=== PATIENT | male | born 1955 | race Caucasian/White ===

== ENCOUNTER 2016-08-08 23:49 | Emergency (ER) | payer BC ==
[2016-08-09 00:39] LABS: Hematocrit 39.1 % (42.0-52.0); Hemoglobin 12.4 gm/dL (13.5-18.0); Mean Cell Volume 82.3 fl (78-100); Mean Corpuscular Hemoglobin 26.1 pg (27-31); Mean Corpuscular Hgb Conc 31.7 g/dl (32-36); Mean Platelet Volume 8.4 fl (6.0-9.5); Neutrophil % 73.8 % (42-75.0); Platelet Count 419 K/mm3 (150-450); Red Blood Count 4.75 M/mm3 (4.7-6.0); Red Cell Distribution Width 15.4 % (11.5-14.0); White Blood Count 12.1 K/mm3 (4.0-10.5)
[2016-08-09 01:00] LABS: ALT 22 U/L (19-67); AST 16 U/L (0-48); Alkaline Phosphatase * 93 U/L (50-170); Anion Gap 11.6 mmol/L (6.8-13.8); BUN/Creatinine Ratio 14.2 (9.0-21.6); Bilirubin, Total 0.2 mg/dL (0.0-1.1); Blood Urea Nitrogen 19 mg/dL (6-23); Ca. Corrected For Albumin 9.2 mg/dL (8.4-10.2); Calcium * 8.7 mg/dL (7.9-10.9); Carbon Dioxide 27.2 mmol/L (24-32.6); Chloride 103 mmol/L (97-106); Glucose * 103 mg/dL (70-110); Potassium 3.8 mmol/L (3.4-4.6); Salicylate Less than 2.8 mg/dL (2.8-20.0); Sodium 138 mmol/L (132-142); TSH * 0.481 uIU/mL (0.358-3.74); Total Protein 7.3 gm/dL (6.2-8.2)
[2016-08-09 01:12] LABS: Urine Bilirubin Negative (NEGATIVE); Urine Blood 25 /ul (NEGATIVE); Urine Ketone 15 mg/dL (NEGATIVE); Urine Nitrite Negative (NEGATIVE); Urine Protein 15 mg/dL (NEGATIVE); Urine Specific Gravity 1.015 SP.GR. (1.005-1.030); Urine Urobilinogen Normal (NORMAL); Urine pH 7.5 pH (5.0-7.0)
--- NOTE | 2016-08-09 01:16 | ERNOTE ---
<Ngozi Ceja - Last Filed: 08/09/16 08:47> Psychological HPI - Date Date of Service: 08/09/16 - - General Chief Complaint: Psychiatric Problem Source: patient, family Exam Limitations: no limitations - Immun/Allergies/Home Medications Allergies/Adverse Reactions: Allergies No Known Allergies Allergy (Unverified 08/08/16 23:56) Home Medications: HOME MEDICATIONS Cyclobenzaprine HCl [Flexeril] 10 mg PO TID PRN 08/09/16 [Last Taken Unknown] Hydrocodone/Acetaminophen [Lortab 5-325 mg Tablet] 1 tab PO Q4H PRN 08/09/16 [ Last Taken Unknown] Lisinopril [Zestril] 10 mg PO DAILY 08/09/16 [Last Taken Unknown] Magnesium Oxide [Magnesium] 400 mg PO DAILY 08/09/16 [Last Taken Unknown] Meloxicam [Mobic] 15 mg PO DAILY 08/09/16 [Last Taken Unknown] - Pain Score Pain Score #1 Pain Score: 2 - patient has chronic low back pain, heel pain due to ulceration - History of Present Illness Narrative: Patient brought by brother for evaluation of suicidal ideation and attempt on Thursday he took a weeks worth of his medications because he wants to go be with his recently girlfriend of greater than 14 years. Patient states he doesn't want to live anymore, he is having very difficult time in coping with this loss. Patient has no prior psychiatric history but in his early 20's did attempt suicide due to severe depression. Patient dines drugs, tob or alcohol use. Time Seen by Provider: 08/09/16 01:15 - Patient's Past Medical History Patient History - Medical: Anxiety, Depression Patient History - Cancer: No Hx of Cancer Patient History - Surgical Procedures: Appendectomy - Social History Living Situations: home Smoking Status: Never smoker Have you smoked in the past 12 months: No Do you dip or chew tobacco: No Patient requests Smoking Cessation Consult: No Initiate information on Smoking Cessation: No Alcohol Use: none Drug Use: none Physical Exam - Physical Exam General Appearance: Present: wd/wn, alert, mild distress, moderate distress Eye Exam: Normal inspection: bilateral, PERRL: bilateral, EOMI: bilateral Ears, Nose, Throat: Present: normal ENT inspection, hearing grossly normal, pharyngeal erythema, tonsillar exudate, other - upper and lower dentures Neck: Present: normal inspection, nontender Respiratory: Present: decreased breath sounds, wheezing, other - left basilar crackles . Absent: no respiratory distress Peripheral Pulses: N=norm/S=strong/W=weak/B=bound/A=absent: Carotid (R): Normal , Carotid (L): Normal, Radial (R): Normal, Radial (L): Normal, Dorsalis-pedis (R ): Normal, Dorsalis-pedis (L): Normal Gastrointestinal/Abdominal: Present: normal bowel sounds, other - obese but non tender, Male Genitals Exam: Present: deferred Back Exam: Present: decreased range of motion, muscle spasm, other - loss of lumbar lordosis and rom . Absent: normal range of motion, no CVA tenderness Extremity Exam: Present: pedal edema, other - right heel with 4 x 3 cm grade IV ulceration, DTR: N=norm/NB=norm/brisk/A=abs/DD=dull/dimin/HC=hyperactive: Bicep (R): Normal , Bicep (L): Normal, Tricep (R): Normal, Tricep (L): Normal Skin Exam: Present: warm/dry, other - foot ulcer grade IV ED Progress - Date and Time Seen: Date and Time: 08/09/16 07:00 patient require redirection hourly due to wanting to go home, patient is willing to sign in voluntarily but if he wants to leave we will pursue court committal as necessary, so far family support has kept him here. 08/09/16 07:41 Re-evaluation: Patient very irritated and not wanting to stay, he is upset at having to wait. Patient counselled on patience and food and pain meds offered. Patient return to his room as requested. - Results and Orders Patient's Lab Results:: I have reviewed the patient's lab results. Results and Orders: wbc : elevated due to recent diagnosis of pneumonia at [facility]. - Vital Signs Patient's Vital Signs:: I have reviewed the patient's vital signs. Vital Signs: Vital Signs 08/08/16 23:56 Temperature 37 C Pulse Rate 87 Respiratory 20 Rate Blood Pressure 157/82 O2 Sat by Pulse 93 Oximetry - EKG EKG: NSR, other - incomplete RBBB, QTC 378 calculated QTC 428 EKG read: Interp. by me - Progress/Reassessment Chief Complaint: Psychiatric Problem Progress:: Re-examined - patient is still at risk of attempting suicide via overdose, he has means and will at this time. - Transfer of Care Expected Disposition: Transfer - awaiting psychiatric bed acceptance Plan - Plan Plan: patient is stable for transfer, psychiatry will be here to see him. transfer care to Dr. Bourgeois Departure Clinical Impression: Suicidal ideation Depression Qualifiers: Depression Type: major depressive disorder Major depression recurrence: single episode Active/Remission status: currently active Major depression episode severity: severe Psychotic features: without psychotic features Qualified Code(s ): F32.2 - Major depressive disorder, single episode, severe without psychotic features Pneumonia Qualifiers: Pneumonia type: due to unspecified organism Laterality: bilateral Lung location : lower lobe of lung Qualified Code(s): J18.9 - Pneumonia, unspecified organism Chronic heel ulcer Qualifiers: Laterality: right Non-pressure ulcer stage: unspecified non-pressure ulcer stage Qualified Code(s): L97.419 - Non-pressure chronic ulcer of right heel and midfoot with unspecified severity - Departure Disposition: Other health care facility Condition: Fair Additional Instructions: I spoke with her psychiatrist just now, Dr. MAHMOOD, who examined the patient. He said that the patient definitely needs to be admitted for psychiatric help into a psychiatric hospital, following his evaluation here in the emergency room today. We will proceed with trying to find a suitable hospital bed. <Jf Escobar - Last Filed: 08/09/16 11:01> ED Progress - Vital Signs Vital Signs: Vital Signs 08/09/16 08:08 Pulse Rate 67 Respiratory 12 Rate Blood Pressure 134/82 O2 Sat by Pulse 98 Oximetry
[2016-08-09 01:17] LABS: Urine Appearance Cloudy; Urine Color Yellow
[2016-08-09 01:18] LABS: Urine Amorphous Sediment Many - 3+ (NONE-FEW); Urine Bacteria None Seen; Urine Mucus Moderate - 2+; Urine RBC 0-5 /hpf (0-5); Urine WBC 0-5 /hpf (0-5)
[2016-08-09 01:30] LABS: Cocaine Ur Negative (NEGATIVE); Urine Barbiturate Negative (NEGATIVE); Urine Benzodiazepines Negative (NEGATIVE); Urine PCP Negative (NEGATIVE); Urine THC Negative (NEGATIVE)
[2016-08-09 01:31] LABS: Urine Opiates Positive (NEGATIVE)
[2016-08-09] MEDS ORDERED: AZITHROMYCIN 250 MG TABLET PO ONE (01:34)
[2016-08-09] MEDS ORDERED: ALBUTEROL SULFATE 2.5 MG/0.5 ML VIAL.NEB IH ONE ×2 (01:37→01:41)
[2016-08-09] MEDS ORDERED: AZITHROMYCIN 250 MG TABLET ONE (01:40)
[2016-08-09] MEDS ORDERED: LORazepam 1 MG TABLET ONE ×2 (03:06→07:55)
[2016-08-09] MEDS ORDERED: LORazepam 1 MG TABLET PO ONE ×3 (03:07→17:42)
[2016-08-09] MEDS ORDERED: HYDROcodone/ACETAMINOPHEN 1 EACH TABLET PO ONE (07:38)
[2016-08-09] MEDS ORDERED: HYDROcodone/ACETAMINOPHEN 1 EACH TABLET ONE (07:55)
[2016-08-09] MEDS ORDERED: ZIPRASIDONE MESYLATE 20 MG VIAL IM ONE ×2 (11:32→12:00)
[2016-08-09] MEDS ORDERED: LORazepam 2 MG/ML DISP.SYRIN ONE (11:42)
[2016-08-09] MEDS ORDERED: LORazepam 2 MG/ML DISP.SYRIN IM ONE (11:45)
--- NOTE | 2016-08-09 20:22 | PN ---
Progess Note - Interim Narrative: 08/09/16 20:20 This patient was diagnosed in the ER today by Dr. Stephen, our psychiatrist, as both suicidal and homicidal, actively. He is depressed and has had prior suicide attempts. He became aggitated multiple times in the ER, but improved when associates and family were removed from the room, and after he was given medication for this purpose. The plan is to continue to look for a psychiatric bed. The search so far has been unsuccessful. He has been temporarily court committed to remain in our ER while we search.
--- NOTE | 2016-08-10 02:43 | ERNOTE ---
Psychological HPI - General Chief Complaint: Psychiatric Problem - Immun/Allergies/Home Medications Allergies/Adverse Reactions: Allergies No Known Allergies Allergy (Unverified 08/08/16 23:56) Home Medications: HOME MEDICATIONS Cyclobenzaprine HCl [Flexeril] 10 mg PO TID PRN 08/09/16 [Last Taken Unknown] Hydrocodone/Acetaminophen [Lortab 5-325 mg Tablet] 1 tab PO Q4H PRN 08/09/16 [ Last Taken Unknown] Lisinopril [Zestril] 10 mg PO DAILY 08/09/16 [Last Taken Unknown] Magnesium Oxide [Magnesium] 400 mg PO DAILY 08/09/16 [Last Taken Unknown] Meloxicam [Mobic] 15 mg PO DAILY 08/09/16 [Last Taken Unknown] - History of Present Illness Narrative: Patient who is waiting for transfer to a psychiatric facility. Patient was seen and declared medically cleared. Time Seen by Provider: 08/10/16 02:35 - Patient's Past Medical History Patient History - Medical: Anxiety, Depression Patient History - Cancer: No Hx of Cancer Patient History - Surgical Procedures: Appendectomy - Social History Living Situations: home Smoking Status: Never smoker Have you smoked in the past 12 months: No Do you dip or chew tobacco: No Patient requests Smoking Cessation Consult: No Initiate information on Smoking Cessation: No Alcohol Use: none Drug Use: none Physical Exam - Physical Exam General Appearance: Present: alert, no apparent distress Respiratory: Present: no respiratory distress Cardiovascular/Chest: Present: regular rate, rhythm, no murmur, normal peripheral pulses Gastrointestinal/Abdominal: Present: soft. Absent: guarding, rebound Back Exam: Present: no CVA tenderness Extremity Exam: Present: normal inspection Neurological Exam: Present: alert, oriented, other - Depressed Skin Exam: Present: normal color, warm/dry Lymphatic Exam: Present: no adenopathy ED Progress - Date and Time Seen: Date and Time: 08/10/16 02:40 Patient's case was presented to multiple facilities for transfer, but no acceptance was obtained. Facilities were full at the moment. - Results and Orders Patient's Lab Results:: I have reviewed the patient's lab results. Results and Orders: CBC: leukocytosis CMP: Normal Na, K, Creat. UA: No bacterial Toxicology: Positive - Vital Signs Patient's Vital Signs:: I have reviewed the patient's vital signs. Vital Signs: VS: 84, BP: 134/89, R: 12, o2 Sat: 93% RA - Progress/Reassessment Chief Complaint: Psychiatric Problem Progress:: Unchanged - Transfer of Care Expected Disposition: Transfer Departure Clinical Impression: Suicidal ideation Depression Qualifiers: Depression Type: major depressive disorder Major depression recurrence: single episode Active/Remission status: currently active Major depression episode severity: severe Psychotic features: without psychotic features Qualified Code(s ): F32.2 - Major depressive disorder, single episode, severe without psychotic features Pneumonia Qualifiers: Pneumonia type: due to unspecified organism Laterality: bilateral Lung location : lower lobe of lung Qualified Code(s): J18.9 - Pneumonia, unspecified organism Chronic heel ulcer Qualifiers: Laterality: right Non-pressure ulcer stage: unspecified non-pressure ulcer stage Qualified Code(s): L97.419 - Non-pressure chronic ulcer of right heel and midfoot with unspecified severity - Departure Disposition: Other health care facility Condition: Fair Additional Instructions: I spoke with her psychiatrist just now, Dr. MAHMOOD, who examined the patient. He said that the patient definitely needs to be admitted for psychiatric help into a psychiatric hospital, following his evaluation here in the emergency room today. We will proceed with trying to find a suitable hospital bed.
[2016-08-10] MEDS ORDERED: ZIPRASIDONE HCL 20 MG CAPSULE ONE (09:07)
[2016-08-10] MEDS ORDERED: LORazepam 1 MG TABLET ONE (09:07)
[2016-08-10] MEDS: LORazepam 1 MG TABLET PO SCH ×2 (09:10→20:27)
[2016-08-10] MEDS: ZIPRASIDONE HCL 20 MG CAPSULE PO SCH ×2 (09:10→20:27)
--- NOTE | 2016-08-10 20:01 | PN ---
Progess Note - Interim Narrative: 08/10/16 20:00 No change in condition. Stable. We continue to look for an accepting psychiatric bed.
--- NOTE | 2016-08-11 09:03 | PN ---
Lisa Note - Interim Narrative: 08/11/16 09:01 Patient in [facility] waiting on bed placement. Has been at [facility] since Thursday. Overdosed on Thursday. Feeling well. Has no suicidal ideation or plan. Thinks taking pills does not solve any problems. Denies hallucinations. Would like to see a psychiatrist and get out of here. Is staying with his brother and at present. No medical issues at present. Will ask Dr. Zepeda to see patient with a view to discharging and outpatient treatment.
[2016-08-11] MEDS: ZIPRASIDONE HCL 20 MG CAPSULE PO SCH (09:06)
[2016-08-11] MEDS: LORazepam 1 MG TABLET PO SCH (09:06)
--- NOTE | 2016-08-11 14:08 | CONS ---
HPI - General Date of Service: 08/11/16 - History of Present Illness Allergies/Adverse Reactions: Allergies No Known Allergies Allergy (Unverified 08/08/16 23:56) Home Medications: Home Medications Medication Instructions Recorded Last Taken Cyclobenzaprine HCl [Flexeril] 10 mg PO TID PRN 08/09/16 Unknown Hydrocodone/Acetaminophen [Lortab 1 tab PO Q4H PRN 08/09/16 Unknown 5-325 mg Tablet] Lisinopril [Zestril] 10 mg PO DAILY 08/09/16 Unknown Magnesium Oxide [Magnesium] 400 mg PO DAILY 08/09/16 Unknown Meloxicam [Mobic] 15 mg PO DAILY 08/09/16 Unknown - Patient's Past Medical History Patient History - Medical: Anxiety, Depression Patient History - Cancer: No Hx of Cancer Patient History - Surgical Procedures: Appendectomy - Social History Living Situations: home Smoking Status: Never smoker Have you smoked in the past 12 months: No Do you dip or chew tobacco: No Patient requests Smoking Cessation Consult: No Initiate information on Smoking Cessation: No Alcohol Use: none Drug Use: none Medications - Medications Current Medications: Current Medications Lorazepam (Ativan) 1 mg PO BID TANIA Stop: 09/09/16 09:01 Last Admin: 08/11/16 09:06 Dose: 1 mg Physical Examination - Exam Vital Signs: Vital Signs - Last Taken Temp 36.6 C 08/11/16 07:10 Pulse 90 08/11/16 07:10 Resp 16 08/11/16 07:10 BP 121/63 08/11/16 07:10 Pulse Ox 95 08/11/16 07:10 O2 Oxygen Delivery Method Room Air - Assessments/Findings (1) Suicidal ideation Problem: Acute
[2016-08-11] MEDS ORDERED: MELOXICAM 15 MG PO SCH (14:45)
[2016-08-11] MEDS ORDERED: LISINOPRIL 10 MG TABLET PO SCH (14:45)
[2016-08-11] MEDS ORDERED: ZIPRASIDONE HCL 20 MG CAPSULE PO ONE (19:53)
[2016-08-11] MEDS ORDERED: LORazepam 1 MG TABLET PO ONE (19:53)
[2016-08-11] MEDS ORDERED: ZIPRASIDONE HCL 40 MG CAPSULE PO SCH (21:00)
[2016-08-11 22:30] VITALS: BP 158/92
[2016-08-12] MEDS ORDERED: MELOXICAM 15 MG TABLET PO SCH (09:00)
== END 2016-08-11 20:30 | disposition home or self-care (01) ==
LOC: ER 23:49
DX: F32.2 Major depressive disorder, single episode, severe without psychotic features (principal); R45.851 Suicidal ideations; J18.9 Pneumonia, unspecified organism; L97.419 Non-pressure chronic ulcer of right heel and midfoot with unspecified severity
CPT/HCPCS: 36415; 80053; 80320; 81001; 84443; 85025; 93005; 96372; 99283; G0479; G0480